=== PATIENT | female | born 1990 | race Caucasian/White ===

== ENCOUNTER 2020-11-04 21:03 | Emergency (ER) | payer OTHER, SELFPAY ==
--- NOTE | 2020-11-04 21:05 | DI.RAD_ITS ---
Exam(s) XR SHOULDER LT COMPLETE 2+V EXAM: XR SHOULDER LT COMPLETE 2+V CLINICAL HISTORY: fall, suspect clav fracture TECHNIQUE: COMPARISON: No exams were available for comparison FINDINGS: Three views were obtained. There is a mid clavicular fracture with moderate displacement. No additi onal fracture seen. IMPRESSION: RADIATION DOSE DELIVERED: Total DLP
[2020-11-04 21:16] VITALS: BP 157/77; PULSE 109; RESP 18; O2SAT 100
[2020-11-04] MEDS: Acetaminophen 500 MG TAB 1000 MG PO (21:43)
[2020-11-04] MEDS: Ibuprofen 800 MG TAB PO (21:43)
--- NOTE | 2020-11-04 22:01 | W.ED.GENAD ---
Discharge Plan Disposition Patient Disposition: HOME Condition: Good Discharge Details Clinical Impression: Closed fracture of left clavicle Primary Care Provider: None,None ED Provider: Dl Kaur Discharge Instructions Instructions: Clavicle Fracture (ED) Additional Instructions: At this time you have evidence of a fracture of your clavicle. These usually do not require operative management. They often heal well on their own if left in the sling. Please keep the sling on at all times until you are reassessed by your PCP or network support specialist. t is very important that you were seen and reassessed by your primary care provider or network support specialist in the next 1 to 2 weeks to evaluate for improvement. Please take Tylenol and Motrin as needed for pain. If you notice any worsening of your symptoms, or any new symptoms such as vomiting, diarrhea, fever, chills, shortness of breath, chest pain, numbness, weakness, or fainting , please return immediately to the emergency department for reevaluation. Please follow up with your primary care provider as soon as possible for reassessment and reevaluation. As always, it was a pleasure participating in your medical care today.I Medical Decision Making 30-year-old female with no significant past medical history is immunizations is up-to-date but tetanus is not, presents today for left shoulder pain. 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 Patient states that she was on a razor scooter when she fell and scraped her right knee, right foot, and landed on her left shoulder. She immediately had pain over the left clavicle. She came in for further assessment. She denies any numbness tingling or weakness. Pain is primarily in the lateral clavicle with movement of the left shoulder. She denies any other complaints at this time. She did not hit her head, she did not lose consciousness. Exam demonstrates tenderness and slight puffiness of the bone over the left clavicle, no tenting. Normal neurovascular exam distally and in the axillary region. No scapular tenderness. No clinical suggestion of brachial plexus injury. No pain with movement of the left shoulder on passive motion, only with active movement. Suspect the pain is likely secondary to a clavicle fracture. May be mild bursa injury of the shoulder but doubt significant tendinopathy or shoulder pathology at this time. X-ray shows evidence of a midshaft clavicle fracture, minimally overriding, displaced, less than 2 cm. With a normal neurovascular exam, and no indication for immediate operative management. Pain well controlled. Sling applied. Patient we recommended to follow-up closely with her PCP and her network support specialist in [place]. Discussed red flags which to return. I have extensively reviewed the treatment plan and discharge instructions with the patient. I have addressed all patient concerns at this time. The patient was made aware of what symptoms to monitor for that would warrant a return to the emergency department. Discussed the plan with the patient, they demonstrate verbal understanding and agreement with our assessment and plan at this time. The documentation in this chart was dictated using [employer] dictation software. Please excuse any dictation errors. Tetanus is updated here. FINDINGS: Bones/joints: Acute mildly displaced/foreshortened left mid clavicular fracture. Lungs: Visualized lung unremarkable. Soft tissues: unremarkable soft tissues. IMPRESSION: Acute left mid clavicular fracture. Thank you for allowing us to participate in the care of your patient. Dictated and Authenticated by: Tin Cano DO 11/04/2020 10:43 PM Eastern Time ([place] & [place]) HPI General Date/Time Provider Initiated Documentation: 11/04/20 21:28. HPI Narrative: 30-year-old female with no significant past medical history is immunizations and tetanus is up-to-date presents today for left shoulder pain. 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 Patient states that she was on a razor scooter when she fell and scraped her right knee, right foot, and landed on her left shoulder. She immediately had pain over the left clavicle. She came in for further assessment. She denies any numbness tingling or weakness. Pain is primarily in the lateral clavicle with movement of the left shoulder. She denies any other complaints at this time. She did not hit her head, she did not lose consciousness. Related Data Allergies Allergy/AdvReac Type Severity Reaction Status Date / Time No Known Allergies Allergy Unverified 11/04/20 21:19 General Stated Complaint: Orthopedic YUE: 4 Review of Systems All systems reviewed & are unremarkable except as noted in HPI and below [facility] Social History Smoking/Tobacco Use Status: Never Smoking risk assessment performed?: Yes Alcohol Intake: current Alcohol Intake frequency: a few times a week Drug use: Occasionally Substance use type: marijuana Do you feel safe at home: Yes Do you feel safe in your relationship?: Yes Exam Narrative Exam Narrative: 1.Const: Well-nourished, Well-developed, appearing stated age 2.Eyes: PERRL, no conjunctival injection, and symmetrical lids. 3.ENT: Atraumatic external nose and ears. Moist MM. Neck: Symmetric, trachea midline, No thyromegaly. 4.CVS: +S1/S2, No murmurs or gallops. Peripheral pulses 2+ and equal in all extremities. Brisk capillary refill in all extremities. 5.RESP: Unlabored respiratory effort. Clear to auscultation bilaterally. No wheezes rales or rhonchi 6.GI: Soft, Nontender/Nondistended, No hepatosplenomegaly. No guarding or rebound. 7.MSK: Left shoulder is nontender, left humerus is nontender. Left lateral/midshaft clavicle demonstrates a pony component suggestive of acute fracture. Minimal pain. No tenting. Patient has no pain with passive range of motion for the shoulder including internal, external rotation, flexion extension and abduction. However active movement of the shoulder including external rotation primarily and posterior movement anterior movement demonstrates notable tenderness over the clavicle region. No tenderness over the ribs or scapula. No evidence of brachial plexus injury with a normal distal neurologic exam, axillary sensation, and movement, capillary refill, and radial pulses. 8.Skin: Warm, Dry. No rashes or lesions. 9.Neuro: clinical haematologist II-XII grossly intact. Sensation grossly intact, no focal neurologic deficits. 10.Psych: (AAO) x3. Appropriate mood and affect Course Vital Signs Vital signs: Vital Signs Pulse 109 H 11/04/20 21:16 Respiratory Rate 18 11/04/20 21:16 Blood Pressure 157/77 H 11/04/20 21:16 Pulse Oximetry 100 11/04/20 21:16 Temperature Source Temporal Artery Scan 11/04/20 21:16 Pulse 109 H 11/04/20 21:16 Respiratory Rate 18 11/04/20 21:16 Respiratory Effort Non-Labored 11/04/20 21:18 Blood Pressure 157/77 H 11/04/20 21:16 Blood Pressure Position Sitting 11/04/20 21:16 Pulse Oximetry 100 11/04/20 21:16 Oxygen Delivery Method Room Air 11/04/20 21:16 Oxygen Flow Rate 0 11/04/20 21:16 Pain Level 6 11/04/20 21:43
--- NOTE | 2020-11-04 22:43 | DI.VRAD_ITS ---
PROCEDURE INFORMATION: Exam: XR Left Shoulder Exam date and time: 11/04/2020 9:37 PM Age: 30 years old Clinical indication: Injury or trauma; Blunt trauma (contusions or hematomas); Injury date: 11/04/20; Injury details: S/P fall. Left clavicle pain, and lt shoulder tenderness. TECHNIQUE: Imaging protocol: XR Left shoulder. Views: 2 or more views. COMPARISON: No relevant images were readily available for comparison purposes. FINDINGS: Bones/joints: Acute mildly displaced/foreshortened left mid clavicular fracture. Lungs: Visualized lung unremarkable. Soft tissues: unremarkable soft tissues. IMPRESSION: Acute left mid clavicular fracture. Dictated and Authenticated by: Tin Cano MD. Ordering:VERONICA Lizama MD
== END 2020-11-04 22:42 | disposition home or self-care (01) ==
PROVIDERS: Emergency Provider Student in an Organized Health Care Education/Training Program
DX: S42.022A Displaced fracture of shaft of left clavicle, initial encounter for closed fracture (principal); V00.141A Fall from scooter (nonmotorized), initial encounter
CPT/HCPCS: 90471; 99283; 73030